=== PATIENT | female | born 1985 | race Hispanic/Latino ===

== ENCOUNTER 2017-07-10 15:26 | Emergency (ER) | payer OTHER ==
[2017-07-10 15:49] VITALS: BP 119/92; PULSE 102; RESP 18; TEMP 98.4; O2SAT 100
[2017-07-10] MEDS ORDERED: RABIES VACCINE 2.5 Units PDR IM ONE (16:22)
[2017-07-10] MEDS ORDERED: Rabies Immune Globulin 150 INTLU/ML VIAL IM STA (16:24)
--- NOTE | 2017-07-10 16:26 | ED PDOC ---
HPI: Skin/Bite Injury Time Seen by Provider: 07/10/17 15:52 Chief Complaint (Nursing): Abnormal Skin Integrity Chief Complaint (Provider): Squirrel Bite History Per: Patient Onset/Duration Of Symptoms: Hrs (x 2) Location Of Injury: Right: Hand (4th finger) Quality Of Symptoms: Painful Additional Complaint(s): Zenobia is a 31 y/o right hand dominant female who presents to the ED for evaluation of wound to right 4th digit sustained when patient fed a squirrel and was bit. Patient washed wound and applied bandage. 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 Tetanus is up to date. PMD: None Provided - Animal Bite Animal's Immunization Status: Wild Animal Past Medical History Reviewed: Historical Data, Nursing Documentation, Vital Signs Vital Signs: Last Vital Signs Temp 98.4 F 07/10/17 15:46 Pulse 102 H 07/10/17 15:46 Resp 18 07/10/17 15:46 BP 119/92 H 07/10/17 15:46 Pulse Ox 100 07/10/17 19:19 - Medical History PMH: No Chronic Diseases - Surgical History Other surgeries: brain tumor removal - Family History Family History: States: No Known Family Hx - Living Arrangements Living Arrangements: With Family - Social History Current smoker - smoking cessation education provided: No Alcohol: None Drugs: Denies - Immunization History Hx Tetanus Toxoid Vaccination: Yes (last booster was 2 years ago) - Home Medications Home Medications: Ambulatory Orders Medication Instructions Recorded Amoxicillin/Clavulanate [Augmentin 1 tab PO BID #14 tab 07/10/17 875 MG-125 MG] Ibuprofen [Motrin Tab] 800 mg PO Q8 PRN #20 tab 07/10/17 - Allergies Allergies/Adverse Reactions: Allergies Allergy/AdvReac Type Severity Reaction Status Date / Time No Known Allergies Allergy Verified 07/10/17 15:49 Review of Systems ROS Statement: Except As Marked, All Systems Reviewed And Found Negative Musculoskeletal: Positive for: Other (animal bite right 4th digit) Skin: Positive for: Other (bite) Physical Exam - Reviewed Nursing Documentation Reviewed: Yes Vital Signs Reviewed: Yes - Physical Exam Appears: Positive for: Well, Non-toxic, No Acute Distress Head Exam: Positive for: ATRAUMATIC Skin: Positive for: Normal Color, Warm, Dry Eye Exam: Positive for: Normal appearance Cardiovascular/Chest: Positive for: Regular Rate, Rhythm. Negative for: Murmur Respiratory: Positive for: CNT, Normal Breath Sounds Extremity: Positive for: Other (superficial puncture wound to right 4th digit along eponychial fold, no active bleeding, fingernail intact, normal distal sensation) Neurologic/Psych: Positive for: Alert, Oriented. Negative for: Motor/Sensory Deficits - Laboratory Results Urine POC: Negative - ECG O2 Sat by Pulse Oximetry: 100 (RA) Pulse Ox Interpretation: Normal Medical Decision Making Medical Decision Making: Time: 16:25 Initial Impression: 31 y/o female with wild animal bite Initial Plan: --Rabies Vaccine --Rabies Immune Globulin - weight based dose --Motrin dose --Initial dose augmentin Wound cleansed with normal saline and Betadine, bacitracin and bandage applied. Patient given prescriptions for Motrin and Augmentin. Scheduled for remainder vaccines was provided. Wound care instructions provided, advised return to ED immediately for any signs of infection, otherwise follow up with PMD. Scribe Attestation: Documented by Jimmie Vernon, acting as a scribe for Jeannie Cornelius PA-C Provider Scribe Attestation: All medical record entries made by the Scribe were at my direction and personally dictated by me. I have reviewed the chart and agree that the record accurately reflects my personal performance of the history, physical exam, medical decision making, and the department course for this patient. I have also personally directed, reviewed, and agree with the discharge instructions and disposition. Disposition - Clinical Impression Clinical Impression: Wound due to squirrel bite, Need for rabies vaccination - Patient ED Disposition Is Patient to be Admitted: No Counseled Patient/Family Regarding: Diagnosis, Need For Followup, Rx Given - Disposition Referrals: formerly [facility] [Outside] Disposition: Routine/Home Disposition Time: 19:14 Condition: STABLE Additional Instructions: Take prescription meds as directed. Wash wound daily with soap and water and apply neosporin once per day. Return to emergency department according to rabies vaccine schedule or sooner for any concerns or signs of wound infection. Prescriptions: Amoxicillin/Clavulanate [Augmentin 875 MG-125 MG] 1 tab PO BID #14 tab Ibuprofen [Motrin Tab] 800 mg PO Q8 PRN #20 tab PRN Reason: Pain, Moderate (4-7) Instructions: Animal Bites (DC), Rabies Immune Globulin (Human), Rabies Vaccine Forms: [employer] (Malay)
[2017-07-10] MEDS ORDERED: Amoxicillin-Clav 875-125 mg Tab PO STA (18:07)
[2017-07-10] MEDS ORDERED: Amoxicillin-Clav 875-125 mg Tab PO ONE (19:11)
== END 2017-07-10 19:42 | disposition home or self-care (01) ==
LOC: H.ER 15:26
DX: S61.235A Puncture wound without foreign body of left ring finger without damage to nail, initial encounter (principal); W53.21XA Bitten by squirrel, initial encounter; Y92.89 Other specified places as the place of occurrence of the external cause

== ENCOUNTER 2017-07-13 11:47 | Emergency (ER) | payer OTHER ==
[2017-07-13 11:59] VITALS: BP 109/73; PULSE 81; RESP 16; TEMP 97.4; O2SAT 100
[2017-07-13] MEDS ORDERED: RABIES VACCINE 2.5 Units PDR IM ONE (12:27)
--- NOTE | 2017-07-13 12:55 | ED PDOC ---
HPI: General Adult Time Seen by Provider: 07/13/17 12:26 Chief Complaint (Nursing): Rabies Vaccine Series Chief Complaint (Provider): 2nd rabies vaccine History Per: Patient History/Exam Limitations: no limitations Onset/Duration Of Symptoms: Days (3) Additional Complaint(s): 31 yo female with no medical problems retruns to ER for rabies vaccine. PT was bit in right 4th digit by a squirrel while feeding it. Pt seen 3 days ago and is taking augmentin as prescribed. Past Medical History Reviewed: Historical Data, Nursing Documentation, Vital Signs Vital Signs: Last Vital Signs Temp 97.4 F L 07/13/17 11:57 Pulse 81 07/13/17 11:57 Resp 16 07/13/17 11:57 BP 109/73 07/13/17 11:57 Pulse Ox 100 07/13/17 11:57 - Medical History PMH: No Chronic Diseases - Surgical History Surgical History: No Surg Hx - Family History Family History: States: Unknown Family Hx - Living Arrangements Living Arrangements: With Family - Social History Current smoker - smoking cessation education provided: No Alcohol: Occasional Drugs: Denies - Immunization History Hx Tetanus Toxoid Vaccination: Yes (last booster was 2 years ago) - Home Medications Home Medications: Ambulatory Orders Medication Instructions Recorded Amoxicillin/Clavulanate [Augmentin 1 tab PO BID #14 tab 07/10/17 875 MG-125 MG] Ibuprofen [Motrin Tab] 800 mg PO Q8 PRN #20 tab 07/10/17 - Allergies Allergies/Adverse Reactions: Allergies Allergy/AdvReac Type Severity Reaction Status Date / Time No Known Allergies Allergy Verified 07/10/17 15:49 Review of Systems ROS Statement: Except As Marked, All Systems Reviewed And Found Negative Constitutional: Negative for: Fever, Chills Skin: Positive for: Other (Wound, right 4th digit ) Physical Exam - Reviewed Nursing Documentation Reviewed: Yes Vital Signs Reviewed: Yes - Physical Exam Appears: Positive for: Well, Non-toxic, No Acute Distress Head Exam: Positive for: ATRAUMATIC, NORMAL INSPECTION, NORMOCEPHALIC Skin: Positive for: Warm. Negative for: Normal Color ((+) abrasion, right 4th digit, base of nail without drainage or surrounding erythema ) Eye Exam: Positive for: Normal appearance ENT: Positive for: Normal ENT Inspection Neck: Positive for: Normal Respiratory: Negative for: Accessory Muscle Use, Respiratory Distress Back: Positive for: Normal Inspection Extremity: Positive for: Normal ROM. Negative for: Tenderness Neurologic/Psych: Positive for: Alert - ECG O2 Sat by Pulse Oximetry: 100 Medical Decision Making Medical Decision Making: Rabies Vaccine IM given in Er. Disposition - Clinical Impression Clinical Impression: Encounter for repeat administration of rabies vaccination, Visit for wound check - Disposition Disposition: Routine/Home Disposition Time: 12:52 Condition: GOOD Instructions: Vaccines for Adults
== END 2017-07-13 12:55 | disposition home or self-care (01) ==
LOC: H.ER 11:47
DX: Z23 Encounter for immunization (principal); Z20.3 Contact with and (suspected) exposure to rabies